=== PATIENT | female | born 1950 | race African-American/Black ===

== ENCOUNTER 2018-11-06 07:15 | Inpatient (IN) | payer MEDICARE ==
[~2018-11-06] VITALS: Ht 160 cm; Wt 72.6 kg
[2018-11-06] MEDS ORDERED: SODIUM CHLORIDE 0.9% 1,000 ML IV ONE (08:10)
[2018-11-06] MEDS ORDERED: ONDANSETRON HCL 4MG/2ML INJ IV STA (08:10)
[2018-11-06] MEDS ORDERED: FAMOTIDINE 20MG/2ML VIAL IV STA (08:10)
[2018-11-06] MEDS ORDERED: MORPHINE SULFATE 4 MG/ML CPJ (NOT FOR IM USE) IV STA (08:10)
[2018-11-06 08:28] LABS: HEMATOCRIT. 33.1 % (36.0-48.0); HEMOGLOBIN. 10.6 g/dL (12.0-16.0); MEAN CORPUSCULAR HEMOGLOBIN 26.3 pg (28.0-32.0); MEAN PLATELET VOLUME 9.4 fl (7.4-10.4); PLATELET 226 x1000/uL (130-400); RED BLOOD CELL COUNT 4.04 mill/uL (4.2-5.4); RED CELL DISTRIBUTION WIDTH 15.8 % (11.6-14.6)
[2018-11-06 08:34] LABS: CHLORIDE 108 mEq/L (98-107)
[2018-11-06 08:35] LABS: INR 1.1; PROTHROMBIN TIME 11.3 sec (9.1-11.1)
[2018-11-06 08:38] LABS: ETHANOL BLOOD < 10 mg/dL
[2018-11-06 09:28] LABS: PLATELET ESTIMATE NORMAL
[2018-11-06] MEDS ORDERED: METRONIDAZOLE 500 MG PREMIX 100 ML IV ONE (11:00)
[2018-11-06] MEDS ORDERED: MORPHINE SULFATE 4 MG/ML CPJ (NOT FOR IM USE) IV ONE (11:00)
[2018-11-06] MEDS ORDERED: ONDANSETRON HCL 4MG/2ML INJ IV ONE (11:00)
[2018-11-06] MEDS ORDERED: PIPERACILLIN/TAZ 3.375G PREMIX 50 ML IV ONE (11:00)
[2018-11-06] MEDS ORDERED: DIATR MEGLU/DIATRIZOATE SOLN 30ML ONE (11:06)
[2018-11-06] MEDS ORDERED: DIATR MEGLU/DIATRIZOATE SOLN 120ML ONE (11:06)
[2018-11-06 11:23] LABS: CLARITY URINE CLEAR (CLEAR); COLOR URINE YELLOW (YELLOW); KETONES URINE 2+ (NEGATIVE); LEUKOCYTE ESTERASE URINE NEGATIVE (NEGATIVE); NITRITE URINE NEGATIVE (NEGATIVE); OCCULT BLOOD URINE NEGATIVE (NEGATIVE); PH URINE 7.5 (4.5-8.0); PROTEIN URINE NEGATIVE (NEGATIVE); SPECIFIC GRAVITY URINE 1.011 (1.005-1.030); UROBILINOGEN URINE 0.2 E.U./dL (0.2-1.0)
[2018-11-06 11:39] LABS: *AMPHETAMINES SCREEN URINE NEGATIVE (NEGATIVE); *BARBITURATES SCREEN URINE NEGATIVE (NEGATIVE); *BENZODIAZEPINES SCREEN URINE NEGATIVE (NEGATIVE); *COCAINE SCREEN URINE NEGATIVE (NEGATIVE); METHADONE URINE SCREEN NEGATIVE (NEGATIVE); OPIATES URINE SCREEN PRESUMTIVE POSITIVE (NEGATIVE)
[2018-11-06 11:40] LABS: CANNABINOID URINE SCREEN NEGATIVE (NEGATIVE); PHENCYCLIDINE URINE SCREEN NEGATIVE (NEGATIVE)
[2018-11-06] MEDS ORDERED: IPRATROPIUM/ALBUTEROL 0.5-3(2.5)MG/3ML NEB INH PRN (13:15)
[2018-11-06] MEDS ORDERED: MAGNESIUM/ALUMINUM HYDROXIDE/SIMETHICONE 30ML UDC PO PRN (13:15)
[2018-11-06] MEDS ORDERED: LORAZEPAM 0.5MG TABLET PO PRN (13:15)
[2018-11-06] MEDS ORDERED: GUAIFENESIN 200MG/10ML SUGAR FREE UDC PO PRN (13:15)
[2018-11-06] MEDS ORDERED: ACETAMINOPHEN 325MG TABLET PO PRN (13:15)
[2018-11-06] MEDS ORDERED: DOCUSATE SODIUM 100MG CAPSULE PO PRN (13:15)
[2018-11-06] MEDS ORDERED: CLONIDINE 0.1MG TABLET PO PRN (13:15)
[2018-11-06] MEDS ORDERED: DIPHENHYDRAMINE 50MG/ML VIAL IV PRN (13:15)
[2018-11-06] MEDS ORDERED: ONDANSETRON HCL 4MG/2ML INJ IV PRN (13:15)
[2018-11-06] MEDS ORDERED: NITROGLYCERIN 0.4MG TABLET SL SL PRN (13:15)
[2018-11-06] MEDS ORDERED: IOHEXOL-300 100 ML BOTTLE ONE (14:51)
[2018-11-06] MEDS ORDERED: MORPHINE SULFATE 4 MG/ML CPJ (NOT FOR IM USE) IV PRN (16:30)
[2018-11-06] MEDS ORDERED: TRAMADOL 50MG TABLET PO PRN (16:30)
[2018-11-06] MEDS ORDERED: KCL 20MEQ/100ML PREMIX 100 ML IV NR (20:15)
[2018-11-06] MEDS ORDERED: NA PHOS,M-B/NA PHOS,DI-BA ENEMA 118ML PR PRN (21:00)
[2018-11-06] MEDS ORDERED: ZOLPIDEM TARTRATE 5MG TABLET PO PRN (21:00)
[2018-11-07] MEDS: KETOROLAC 15MG/ML VIAL IV PRN ×2 (04:19→22:25)
[2018-11-07 05:00] VITALS: BP 152/81
[2018-11-07] MEDS ORDERED: SODIUM CHLORIDE 0.9% 1,000 ML IV SCH (06:00)
[2018-11-07] MEDS: METOCLOPRAMIDE 10MG/10 ML UDC PO SCH ×3 (06:34→16:55)
[2018-11-07 08:00] VITALS: BP 96/59
[2018-11-07] MEDS: ENOXAPARIN 40MG/0.4ML SYR SUBCUT SCH (08:26)
[2018-11-07] MEDS: PANTOPRAZOLE SODIUM 40 MG/VIAL IV SCH (08:26)
[2018-11-07] MEDS: METOPROLOL TARTRATE 25MG TABLET PO SCH ×2 (08:27→21:47)
[2018-11-07 10:25] LABS: BASOPHILS % 0.2 % (0.0-2.0); EOSINOPHILS % 0.1 % (0.0-5.0); HEMATOCRIT. 31.4 % (36.0-48.0); HEMOGLOBIN. 9.9 g/dL (12.0-16.0); LYMPHOCYTES % 7.6 % (20.0-50.0); MEAN CORPUSCULAR VOLUME 82.7 fL (81.0-99.0); MEAN PLATELET VOLUME 9.8 fl (7.4-10.4); MONOCYTES % 8.7 % (2.0-8.0); NEUTROPHILS % 83.4 % (40.0-76.0); PLATELET 199 x1000/uL (130-400); RED CELL DISTRIBUTION WIDTH 16.2 % (11.6-14.6)
[2018-11-07 10:34] LABS: CHLORIDE 110 mEq/L (98-107)
[2018-11-07 12:00] VITALS: BP 112/55
[2018-11-07 20:00] VITALS: BP 130/76
[2018-11-08] VITALS: BP 105/58
[2018-11-08 04:00] VITALS: BP 116/70
[2018-11-08] MEDS: METOCLOPRAMIDE 10MG/10 ML UDC PO SCH (06:22)
[2018-11-08 06:58] LABS: CHLORIDE 110 mEq/L (98-107)
[2018-11-08 07:40] VITALS: BP 110/54
[2018-11-08] MEDS: PANTOPRAZOLE SODIUM 40 MG/VIAL IV SCH (08:19)
[2018-11-08] MEDS: ENOXAPARIN 40MG/0.4ML SYR SUBCUT SCH (08:19)
[2018-11-08] MEDS: METOPROLOL TARTRATE 25MG TABLET PO SCH (08:23)
[2018-11-08 11:32] VITALS: BP 115/54
[2018-11-08 11:39] VITALS: BP 115/54
[2018-11-09] MEDS ORDERED: FAMOTIDINE 20MG TABLET PO SCH (09:00)
== END 2018-11-08 15:15 | disposition home health service (06) | DRG 948 ==
LOC: ER 07:15 → 8WST 11:43 → EDBEDREQSVC 11:48 → EDBEDREQ 11:48 → EDBEDREQSVC 11-07 02:40 → EDBEDREQTM 11-07 02:43 → ENRESERV 11-07 04:06
PROVIDERS: ADMIT Internal Medicine; ATTEND Internal Medicine
DX: G89.3 Neoplasm related pain (acute) (chronic) (principal); E87.6 Hypokalemia; E83.52 Hypercalcemia; I10 Essential (primary) hypertension; R10.9 Unspecified abdominal pain; D63.8 Anemia in other chronic diseases classified elsewhere; D72.829 Elevated white blood cell count, unspecified; R11.2 Nausea with vomiting, unspecified; Z85.3 Personal history of malignant neoplasm of breast
CPT/HCPCS: 36415; 71045; 74176; 74177; 80305; 83036; 83605; 84484; 93005; 93970; 96361; 96365; 96375; 96376; 97161; 97165; 99285; C1893; C9113; J1650; J1885; J2270; J2405; J2543; J3480; J3490; J7030; J8597; Q9963; Q9967